=== PATIENT | female | born 1975 | race Caucasian/White ===

== ENCOUNTER → 2018-07-11 | Outpatient (CLI) | payer OTHER ==
[~2018-07-11] MED LIST: CITA20TA6 PO; MULT-658 PO
[2018-07-11 15:48] LABS: BASOPHILS # (AUTO) 0.09 x10^3/uL (0-0.1); BASOPHILS % (AUTO) 2 % (0-1); EOSINOPHILS # (AUTO) 0.24 x10^3/uL (0-0.4); EOSINOPHILS % (AUTO) 4 % (1-7); LYMPHOCYTES # (AUTO) 1.85 x10^3/uL (1-3.4); LYMPHOCYTES % (AUTO) 32 % (22-44); MD NO; MEAN CORPUSCULAR HEMOGLOBIN 18.8 pg (27.0-34.8); MEAN CORPUSCULAR HGB CONC 30.8 g/dL (32.4-35.8); MEAN PLATELET VOLUME 9.2 fL (7.4-10.4); MONOCYTES # (AUTO) 0.55 x10^3/uL (0.2-0.8); MONOCYTES % (AUTO) 10 % (2-9); NEUTROPHILS # (AUTO) 3.01 x10^3/uL (1.8-6.8); NEUTROPHILS % (AUTO) 53 % (42-75); PLATELET COUNT 258 x10^3/uL (130-400); RED BLOOD COUNT 4.74 x10^6/uL (3.82-5.3); RED CELL DISTRIBUTION WIDTH 17.2 % (9.6-15.2)
== END | disposition home or self-care (01) ==
LOC: STAR 13:48
PROVIDERS: ATTEND Obstetrics & Gynecology Female Pelvic Medicine and Reconstructive Surgery
DX: D25.9 Leiomyoma of uterus, unspecified (principal); N85.2 Hypertrophy of uterus; N93.9 Abnormal uterine and vaginal bleeding, unspecified; Z90.710 Acquired absence of both cervix and uterus
CPT/HCPCS: 36415; 84703; 85025

== ENCOUNTER 2018-07-17 08:28 | Day surgery (SDC) | payer OTHER ==
[~2018-07-17] VITALS: Ht 167.6 cm; Wt 152.0 kg
[2018-07-17 09:25] VITALS: BP 121/84
[2018-07-17] MEDS ORDERED: LACTATED RINGERS 1,000 ML IV SCH ×2 (09:27→13:55)
[2018-07-17] MEDS ORDERED: GABAPENTIN 300 MG CAPSULE PO STA (09:28)
[2018-07-17] MEDS ORDERED: SCOPOLAMINE PATCH, 1.5MG PATCH.TD72 TD STA (09:28)
[2018-07-17] MEDS ORDERED: ACETAMINOPHEN 500 MG TABLET PO STA (09:28)
[2018-07-17] MEDS ORDERED: LIDOCAINE-MPF 1%, 2ML INFIL ONE (09:30)
[2018-07-17] MEDS ORDERED: ACETAMINOPHEN 500 MG TABLET PO ONE (10:30)
[2018-07-17] MEDS ORDERED: SCOPOLAMINE PATCH, 1.5MG PATCH.TD72 TD ONE (10:30)
[2018-07-17] MEDS ORDERED: GABAPENTIN 300 MG CAPSULE PO ONE (10:30)
[2018-07-17] MEDS ORDERED: PROPOFOL 10 MG/ML, 20ML ONE (11:50)
[2018-07-17] MEDS ORDERED: CEFAZOLIN 1,000 MG ONE (11:50)
[2018-07-17] MEDS ORDERED: MIDAZOLAM 1 MG/ML, 5ML ONE (11:50)
[2018-07-17] MEDS ORDERED: ROCURONIUM 10MG/ML,5ML ONE (11:50)
[2018-07-17] MEDS ORDERED: DEXAMETHASONE 4 MG/ML, 1ML ONE (11:50)
[2018-07-17] MEDS ORDERED: FENTANYL PF 100 MCG/2ML ONE (11:50)
[2018-07-17] MEDS ORDERED: KETOROLAC 30 MG/1 ML ONE (11:50)
[2018-07-17] MEDS ORDERED: NEOSTIGMINE 1 MG/ML, 10ML ONE (11:50)
[2018-07-17] MEDS ORDERED: GLYCOPYRROLATE 0.2MG/1ML, 5ML ONE (11:50)
[2018-07-17] MEDS ORDERED: PROMETHAZINE 25 MG SUPP PR PRN (12:00)
[2018-07-17] MEDS ORDERED: HYDROmorphone 2 MG/ML, 1ML IVPush PRN (12:00)
[2018-07-17] MEDS ORDERED: OXYcodone 5 MG/5 ML ORAL.SOL UDC PO PRN (12:00)
[2018-07-17] MEDS ORDERED: LABETALOL 5MG/ML, 20ML IV PRN (12:00)
[2018-07-17] MEDS ORDERED: MEPERIDINE/PF 25MG/0.5ML IVPush PRN (12:00)
[2018-07-17] MEDS ORDERED: PROMETHAZINE 25 MG/ML, 1ML IV PRN (12:00)
[2018-07-17] MEDS ORDERED: ONDANSETRON 2MG/ML, 2ML IV PRN (12:00)
[2018-07-17] MEDS ORDERED: FENTANYL PF 100 MCG/2ML IV PRN (12:00)
[2018-07-17] MEDS ORDERED: ONDANSETRON ODT 8 MG PO PRN (12:00)
[2018-07-17] MEDS ORDERED: HALOPERIDOL 5 MG/ML IV PRN (12:00)
[2018-07-17] MEDS ORDERED: MORPHINE SULFATE 4 MG/ML, 1ML IVPush PRN (12:00)
[2018-07-17] MEDS ORDERED: PROMETHAZINE 25 MG/ML, 1ML IM PRN ×2 (12:00)
[2018-07-17] MEDS ORDERED: PROMETHAZINE 12.5 MG SUPP PR PRN (12:00)
[2018-07-17] MEDS ORDERED: hydrALAzine 20 MG/ML, 1ML IV PRN (12:00)
[2018-07-17] MEDS ORDERED: INDIGO CARMINE 0.8%, 5ML ONE (12:24)
[2018-07-17] MEDS ORDERED: ONDANSETRON 2MG/ML, 2ML ONE (13:49)
[2018-07-17] MEDS ORDERED: PROMETHAZINE 25 MG SUPP PR ONE (14:00)
[2018-07-17] MEDS ORDERED: ONDANSETRON 2MG/ML, 2ML IVPush PRN (14:00)
[2018-07-17] MEDS ORDERED: IBUPROFEN 600 MG TABLET PO PRN (14:00)
[2018-07-17] MEDS ORDERED: OXYcodone/APAP 5/325MG TABLET PO PRN (14:00)
[2018-07-17] MEDS ORDERED: HYDROmorphone 2 MG/ML, 1ML ONE (14:06)
== END 2018-07-17 16:20 | disposition home or self-care (01) ==
LOC: OUT 08:28
PROVIDERS: ATTEND Obstetrics & Gynecology Female Pelvic Medicine and Reconstructive Surgery
DX: D25.9 Leiomyoma of uterus, unspecified (principal); N92.0 Excessive and frequent menstruation with regular cycle; N85.2 Hypertrophy of uterus; F32.9 Major depressive disorder, single episode, unspecified; F41.9 Anxiety disorder, unspecified; Z98.51 Tubal ligation status; Z90.3 Acquired absence of stomach [part of]; Z98.890 Other specified postprocedural states; Z79.899 Other long term (current) drug therapy
CPT/HCPCS: 58552; 88307; J0690; J1100; J1170; J1885; J2250; J2405; J2704; J2710; J3010; J3490; J7120

== ENCOUNTER 2018-12-05 07:16 | Observation (INO) | payer OTHER ==
[~2018-12-05] VITALS: Ht 167.6 cm; Wt 155.2 kg
--- NOTE | 2018-12-05 08:09 | NUR ---
TO THE ROOM FROM LOBBY, GAIT SLOW AND STEADY
[2018-12-05] MEDS ORDERED: MELA3TAB62 PO (08:28)
[2018-12-05] MEDS ORDERED: MULT-658 PO (08:29)
[2018-12-05] MEDS ORDERED: SODIUM CHLORIDE FLUSH 10ML SYR IVF ONE (08:30)
[2018-12-05] MEDS ORDERED: ONDANSETRON 2MG/ML, 2ML IVPush ONE (08:30)
[2018-12-05] MEDS ORDERED: FAMOTIDINE 20 MG/2 ML IVP ONE (08:30)
[2018-12-05] MEDS ORDERED: ONDANSETRON 2MG/ML, 2ML ONE ×2 (08:43→18:21)
[2018-12-05] MEDS ORDERED: MORPHINE SULFATE 4 MG/ML, 1ML ONE ×3 (08:44→14:00)
[2018-12-05] MEDS ORDERED: FAMOTIDINE 20 MG/2 ML ONE (08:44)
[2018-12-05] MEDS: MORPHINE SULFATE 4 MG/ML, 1ML IVPush PRN ×2 (08:48→11:39)
--- NOTE | 2018-12-05 08:49 | NUR ---
PIV STARTED AND BLOOD DRAWN AND SENT TO LAB. PATIENT MEDICATED AND IS GOING TO ULTRASOUND AT THIS TIME.
[2018-12-05 09:09] LABS: MEAN CORPUSCULAR VOLUME 60.6 fL (80-100); MEAN PLATELET VOLUME 8.3 fL (7.4-10.4); PLATELET COUNT 215 x10^3/uL (130-400); RED BLOOD COUNT 4.98 x10^6/uL (3.82-5.3); RED CELL DISTRIBUTION WIDTH 17.5 % (9.6-15.2)
[2018-12-05 09:12] LABS: ALANINE AMINOTRANSFERASE 20 U/L (12-78); ALBUMIN 3.9 g/dL (3.4-5.0); ANION GAP 7 mmol/L (5-15); CALCIUM 8.6 mg/dL (8.5-10.1); CHLORIDE 108 mmol/L (98-107); CREATININE 0.94 mg/dL (0.55-1.02)
[2018-12-05 09:14] LABS: ALKALINE PHOSPHATASE 80 U/L (45-117); BILIRUBIN,TOTAL 0.5 mg/dL (0.2-1.0); TOTAL PROTEIN 7.5 g/dL (6.4-8.2)
[2018-12-05 09:43] LABS: BASOPHILS # (AUTO) 0.04 x10^3/uL (0-0.1); BASOPHILS % (AUTO) 0 % (0-1); EOSINOPHILS % (AUTO) 1 % (1-7); LYMPHOCYTES # (AUTO) 0.98 x10^3/uL (1-3.4); LYMPHOCYTES % (AUTO) 10 % (22-44); MD SCAN; MEAN CORPUSCULAR HGB CONC 29.6 g/dL (32.4-35.8); MONOCYTES # (AUTO) 0.61 x10^3/uL (0.2-0.8); MONOCYTES % (AUTO) 7 % (2-9); NEUTROPHILS # (AUTO) 7.65 x10^3/uL (1.8-6.8); NEUTROPHILS % (AUTO) 82 % (42-75)
[2018-12-05 10:29] LABS: CULTURE INDICATED? NO; MICROSCOPIC NOT IND
--- NOTE | 2018-12-05 10:41 | NUR ---
PT TO CT AT THIS TIME.
[2018-12-05] MEDS ORDERED: OMNIPAQUE 350 MG/ML, 150 ML BOTTLE ONE (11:03)
[2018-12-05] MEDS ORDERED: CEFOTETAN PMX 1GM/50ML 50 ML IV ONE (11:30)
[2018-12-05] MEDS ORDERED: CEFOTETAN PMX 1GM/50ML 50 ML ONE (11:30)
--- NOTE | 2018-12-05 13:18 | NUR ---
[facility] TELEPHONE HAND-OFF REPORT GIVEN TO FAUSTO HENNING. DR. TILLMAN AT BEDSIDE.
[2018-12-05] MEDS ORDERED: morphine SULFATE 10 MG/ML, 1ML IVPush ONE (14:00)
[2018-12-05 14:20] VITALS: BP 149/83
[2018-12-05] MEDS ORDERED: MORPHINE SULFATE 4 MG/ML, 1ML IVPush PRN ×2 (14:30→19:00)
[2018-12-05] MEDS ORDERED: ONDANSETRON 2MG/ML, 2ML IVPush PRN ×2 (14:30→19:00)
[2018-12-05] MEDS: CEFOTETAN PMX 2GM/50ML 50 ML IV SCH (14:42)
[2018-12-05] MEDS: SODIUM CHLORIDE 0.9% 1,000 ML IV SCH ×2 (14:42→18:44)
[2018-12-05] MEDS ORDERED: EPINEPHRINE 1 MG/ML, 1ML ONE (17:36)
[2018-12-05] MEDS ORDERED: BUPIVACAINE/PF 0.5% ONE (17:36)
[2018-12-05] MEDS ORDERED: FENTANYL PF 100 MCG/2ML ONE ×2 (17:43→18:25)
[2018-12-05] MEDS ORDERED: HYDROmorphone 2 MG/ML, 1ML IVPush PRN (18:00)
[2018-12-05] MEDS ORDERED: FENTANYL PF 100 MCG/2ML IV PRN (18:00)
[2018-12-05] MEDS ORDERED: HALOPERIDOL 5 MG/ML IV PRN (18:00)
[2018-12-05] MEDS ORDERED: hydrALAzine 20 MG/ML, 1ML IV PRN (18:00)
[2018-12-05] MEDS ORDERED: PROMETHAZINE 25 MG/ML, 1ML IV PRN (18:00)
[2018-12-05] MEDS ORDERED: MEPERIDINE/PF 25MG/0.5ML IVPush PRN (18:00)
[2018-12-05] MEDS ORDERED: PROCHLORPERAZINE 5 MG/ML, 2ML IV PRN (18:00)
[2018-12-05] MEDS ORDERED: OXYcodone 5 MG/5 ML ORAL.SOL UDC PO PRN (18:00)
[2018-12-05] MEDS ORDERED: DIPHENHYDRAMINE 50 MG/ML, 1ML IVPush PRN (18:00)
[2018-12-05] MEDS ORDERED: METOPROLOL 1 MG/ML, 5ML IV PRN (18:00)
[2018-12-05] MEDS ORDERED: LABETALOL 5MG/ML, 20ML IV PRN (18:00)
[2018-12-05] MEDS ORDERED: CEFAZOLIN 1,000 MG ONE (18:21)
[2018-12-05] MEDS ORDERED: SUCCINYLCHOLINE 20 MG/ML, 10ML ONE ×2 (18:21)
[2018-12-05] MEDS ORDERED: PROPOFOL 10 MG/ML, 20ML ONE (18:21)
[2018-12-05] MEDS ORDERED: KETOROLAC 30 MG/1 ML ONE (18:21)
[2018-12-05] MEDS ORDERED: NEOSTIGMINE 1 MG/ML, 10ML ONE (18:21)
[2018-12-05] MEDS ORDERED: SUGAMMADEX 200 MG/2 ML IVPush ONE (18:21)
[2018-12-05] MEDS ORDERED: ROCURONIUM 10MG/ML,5ML ONE (18:21)
[2018-12-05] MEDS ORDERED: GLYCOPYRROLATE 0.2MG/1ML, 5ML ONE (18:21)
[2018-12-05] MEDS ORDERED: DEXAMETHASONE 4 MG/ML, 1ML ONE (18:21)
[2018-12-05] MEDS ORDERED: KETOROLAC 30 MG/1 ML IV PRN (19:00)
[2018-12-05] MEDS ORDERED: DIPHENHYDRAMINE 50 MG/ML, 1ML IV PRN (19:00)
[2018-12-05] MEDS ORDERED: LORazepam 2 MG/ML, 1ML IV PRN (19:00)
[2018-12-05] MEDS ORDERED: ACETAMINOPHEN 650 MG/20.3 ML UDC PO PRN (19:00)
[2018-12-05] MEDS ORDERED: ENALAPRILAT 1.25 MG/ML, 2ML IV PRN (19:00)
[2018-12-05] MEDS ORDERED: OXYcodone 5 MG/5 ML ORAL.SOL UDC ONE (19:14)
[2018-12-05 19:45] VITALS: BP 103/51
[2018-12-05] MEDS: POTASSIUM CHLORIDE 20 MEQ in D5%-0.45% NACL 1,000 ML IV SCH (20:08)
[2018-12-06] MEDS: HYDROcodone/APAP 5/325 TABLET PO PRN ×2 (00:13→05:04)
[2018-12-06] MEDS: SODIUM CHLORIDE 0.9% 1,000 ML IV SCH ×2 (00:13→09:48)
[2018-12-06] MEDS ORDERED: CEFOTETAN PMX 1GM/50ML 50 ML IVPB SCH (02:00)
[2018-12-06 03:23] VITALS: BP 113/75
[2018-12-06] MEDS: CEFOTETAN PMX 2GM/50ML 50 ML IV SCH (05:54)
[2018-12-06 05:59] LABS: ALBUMIN 3.2 g/dL (3.4-5.0); ANION GAP 5 mmol/L (5-15); CALCIUM 8.5 mg/dL (8.5-10.1); CHLORIDE 108 mmol/L (98-107)
[2018-12-06 06:10] LABS: MEAN CORPUSCULAR HEMOGLOBIN 17.9 pg (27.0-34.8); MEAN CORPUSCULAR VOLUME 61.1 fL (80-100); MEAN PLATELET VOLUME 8.2 fL (7.4-10.4); PLATELET COUNT 199 x10^3/uL (130-400); RED CELL DISTRIBUTION WIDTH 18.3 % (9.6-15.2)
[2018-12-06 06:19] LABS: MEAN CORPUSCULAR HGB CONC 29.3 g/dL (32.4-35.8)
[2018-12-06 06:43] LABS: BASOPHILS # (AUTO) 0.01 x10^3/uL (0-0.1); BASOPHILS % (AUTO) 0 % (0-1); EOSINOPHILS # (AUTO) 0.01 x10^3/uL (0-0.4); EOSINOPHILS % (AUTO) 0 % (1-7); LYMPHOCYTES # (AUTO) 0.71 x10^3/uL (1-3.4); LYMPHOCYTES % (AUTO) 6 % (22-44); MD SCAN; MONOCYTES % (AUTO) 4 % (2-9); NEUTROPHILS # (AUTO) 10.82 x10^3/uL (1.8-6.8); NEUTROPHILS % (AUTO) 90 % (42-75)
[2018-12-06 07:30] VITALS: BP 110/75
[2018-12-06] MEDS: POTASSIUM CHLORIDE 20 MEQ in D5%-0.45% NACL 1,000 ML IV SCH (08:12)
[2018-12-06] MEDS ORDERED: ENOXAPARIN 40 MG/0.4 ML SQ SCH (09:00)
[2018-12-06] MEDS ORDERED: HYDR-3240 PO (10:51)
[2018-12-06] MEDS ORDERED: ONDA4TAB7 PO (10:51)
== END 2018-12-06 11:05 | disposition home or self-care (01) ==
LOC: ED 08:52 → EDIP 12:45 → INTOOBSV 12:45 → 4NOR 14:13 → DCLOUNGE 12-06 10:46
PROVIDERS: ADMIT Surgery; ATTEND Surgery
DX: K35.30 Acute appendicitis with localized peritonitis, without perforation or gangrene (principal); R11.0 Nausea; R19.7 Diarrhea, unspecified; E66.01 Morbid (severe) obesity due to excess calories; Z68.43 Body mass index [BMI] 50.0-59.9, adult; Z90.710 Acquired absence of both cervix and uterus; Z98.84 Bariatric surgery status
CPT/HCPCS: 36415; 44970; 74177; 76700; 80048; 80053; 81003; 82040; 83690; 85025; 88304; 93005; 96361; 96365; 96366; 96372; 96375; 96376; 99284; G0378; J0171; J0330; J0690; J1100; J1650; J1885; J2270; J2405; J2704; J3010; J3480; J3490; J7030; Q9967; S0020; 96367; J2710